=== PATIENT | female | born 1990 | race American Indian/Alaskan Native ===

== ENCOUNTER 2021-02-04 14:47 | Emergency (ER) | payer SELFPAY ==
[2021-02-04] MEDS ORDERED: LORazepam 2 MG/ML VIAL IM PRN (14:58)
[2021-02-04] MEDS ORDERED: HALOPERIDOL LACTATE 5 MG/1 ML INJ IM PRN (14:58)
[2021-02-04] MEDS ORDERED: diphenhydrAMINE 25 MG CAP PO PRN (14:58)
--- NOTE | 2021-02-04 14:59 | Event Note ---
Date: 02/04/21 The patient was evaluated in the emergency department for symptoms described in the history of present illness. He/she was evaluated in the context of the global COVID-19 pandemic, which necessitated consideration that the patient might be at risk for infection with the virus that causes COVID-19. Institutional protocols and algorithms that pertain to the evaluation of patients at risk for COVID-19 are in a state of rapid change based on information released by regulatory bodies including the CDC and federal and state organizations. These policies and algorithms were followed during the patient's care in the emergency department. Please note that these policies, procedures and recommendations changed on a rapid basis. Medical screening examination note: Charge nurse has asked me to expediently evaluate this patient for acute psychosis. The patient is reportedly brought to the hospital by her for psychotic behavior. As per collateral information from nursing staff, patient refusing vital signs, refusing evaluation, and is reading from a Bible in a hyperverbal, disorganized manner. On my evaluation, the patient is awake, but agitated, uncooperative, and presents acutely psychotic. The patient does not exhibit decision-making capacity. The patient meets criteria for 1013. 1013 ordered and executed by myself. Laboratory studies have been ordered. Psychiatric consultation has been requested. As needed medications have been ordered.
[2021-02-04 15:43] LABS: Basophils # (Auto) 0.1 K/mm3 (0.0-0.1); Basophils % (Auto) 0.6 % (0.0-1.8); Eosinophils # (Auto) 0.1 K/mm3 (0.0-0.4); Eosinophils % (Auto) 0.7 % (0.0-4.3); Hematocrit 42.3 % (30.3-42.9); Hemoglobin 13.7 gm/dl (10.1-14.3); Lymphocytes # (Auto) 2.6 K/mm3 (1.2-5.4); Lymphocytes % (Auto) 19.7 % (13.4-35.0); Mean Corpuscular HGB Conc 33 % (30-34); Mean Corpuscular Volume 94 fl (79-97); Monocytes % (Auto) 7.4 % (0.0-7.3); Platelet Count 351 K/mm3 (140-440); Red Cell Distribution Width 14.1 % (13.2-15.2)
[2021-02-04 16:04] LABS: BUN/Creatinine Ratio 11; Blood Urea Nitrogen 10 mg/dL (7-17); Calcium 9.6 mg/dL (8.4-10.2); Hemolysis Index 29
--- NOTE | 2021-02-04 16:08 | Emergency Department Report ---
HPI - General Chief Complaint: Psych Time Seen by Provider: 02/04/21 15:01 - HPI HPI: This is a 30-year-old female who presents to the emergency department, brought in by her , for a mental health evaluation. The patient has a history of bipolar disorder and is noncompliant with her medications. Over the past 2 days the has been noticing worsening erratic behavior. She was seen outside of the emergency department, in the lobby, fighting with her . She has been hyperverbal and clutching a Bible and exhibiting disorganized thoughts and speech. The patient was initially seen by my colleague who placed her on a 1013 and ordered for medication for treatment so her evaluation can continue. Patient has never been to this facility previously. ED Past Medical Hx - Medications Home Medications: Home Medications Medication Instructions Recorded Confirmed Last Taken Type hydrOXYzine PAMOATE [Vistaril] 25 mg PO BID PRN #60 capsule 02/05/21 Unknown Rx traZODone [Desyrel] 50 mg PO QHS #30 tab 02/05/21 Unknown Rx ED Review of Systems ROS: Stated complaint: PYSCH EVAL Other details as noted in HPI Comment: Unobtainable due to pts medical conditions Physical Exam - Physical Exam Physical Exam: GENERAL: The patient is well-developed well-nourished. HENT: Normocephalic. Atraumatic. Patient has moist mucous membranes. EYES: Extraocular motions are intact. NECK: Supple. Trachea is midline. CHEST/LUNGS: Clear to auscultation. There is no respiratory distress noted. HEART/CARDIOVASCULAR: Regular. There is no tachycardia. There is no murmur. ABDOMEN: Abdomen is soft, nontender. Patient has normal bowel sounds. SKIN: Skin is warm and dry. NEURO: The patient is awake, alert, but is not cooperative. No slurred speech. MUSCULOSKELETAL: There is no tenderness or deformity. There is no limitation range of motion. PSYCH: Patient expresses rambling tangential thoughts. ED Medical Decision Making - Lab Data Result diagrams: 02/04/21 15:14 02/04/21 15:14 Lab Results 02/04/21 02/04/21 02/04/21 Range/Units 15:14 15:14 15:14 WBC 13.0 H (4.5-11.0) K/mm3 RBC 4.50 (3.65-5.03) M/mm3 Hgb 13.7 (10.1-14.3) gm/dl Hct 42.3 (30.3-42.9) % MCV 94 (79-97) fl MCH 31 (28-32) pg MCHC 33 (30-34) % RDW 14.1 (13.2-15.2) % Plt Count 351 (140-440) K/mm3 Lymph % (Auto) 19.7 (13.4-35.0) % Armstrong % (Auto) 7.4 H (0.0-7.3) % Eos % (Auto) 0.7 (0.0-4.3) % Baso % (Auto) 0.6 (0.0-1.8) % Lymph # (Auto) 2.6 (1.2-5.4) K/mm3 Armstrong # (Auto) 1.0 H (0.0-0.8) K/mm3 Eos # (Auto) 0.1 (0.0-0.4) K/mm3 Baso # (Auto) 0.1 (0.0-0.1) K/mm3 Seg Neutrophils % 71.6 H (40.0-70.0) % Seg Neutrophils # 9.3 H (1.8-7.7) K/mm3 Sodium 137 (137-145) mmol/L Potassium 3.6 (3.6-5.0) mmol/L Chloride 102.8 (98-107) mmol/L Carbon Dioxide 18 L (22-30) mmol/L Anion Gap 20 mmol/L BUN 10 (7-17) mg/dL Creatinine 0.9 (0.6-1.2) mg/dL Estimated GFR > 60 ml/min BUN/Creatinine Ratio 11 % Glucose 122 H (65-100) mg/dL Calcium 9.6 (8.4-10.2) mg/dL HCG, Qual (Negative) Salicylates (2.8-20.0) mg/dL Acetaminophen (10.0-30.0) ug/mL Plasma/Serum Alcohol < 0.01 (0-0.07) % 02/04/21 02/04/21 02/04/21 Range/Units 15:14 15:14 15:14 WBC (4.5-11.0) K/mm3 RBC (3.65-5.03) M/mm3 Hgb (10.1-14.3) gm/dl Hct (30.3-42.9) % MCV (79-97) fl MCH (28-32) pg MCHC (30-34) % RDW (13.2-15.2) % Plt Count (140-440) K/mm3 Lymph % (Auto) (13.4-35.0) % Armstrong % (Auto) (0.0-7.3) % Eos % (Auto) (0.0-4.3) % Baso % (Auto) (0.0-1.8) % Lymph # (Auto) (1.2-5.4) K/mm3 Armstrong # (Auto) (0.0-0.8) K/mm3 Eos # (Auto) (0.0-0.4) K/mm3 Baso # (Auto) (0.0-0.1) K/mm3 Seg Neutrophils % (40.0-70.0) % Seg Neutrophils # (1.8-7.7) K/mm3 Sodium (137-145) mmol/L Potassium (3.6-5.0) mmol/L Chloride (98-107) mmol/L Carbon Dioxide (22-30) mmol/L Anion Gap mmol/L BUN (7-17) mg/dL Creatinine (0.6-1.2) mg/dL Estimated GFR ml/min BUN/Creatinine Ratio % Glucose (65-100) mg/dL Calcium (8.4-10.2) mg/dL HCG, Qual Negative (Negative) Salicylates < 0.3 L (2.8-20.0) mg/dL Acetaminophen 5.0 L (10.0-30.0) ug/mL Plasma/Serum Alcohol (0-0.07) % - Medical Decision Making This patient presents to the emergency department for mental health evaluation. She has rambling tangential thoughts and appears disorganized. She has been agitated and even violent towards her . Initially patient was seen by my colleague and placed on a 1013. She received some medications for treatment of her psychosis that we could do our medical clearance and evaluation. Labs have been mostly unremarkable thus far including CBC, metabolic panel, blood alcohol level, negative salicylate and acetaminophen levels, and the patient is not . We are still waiting for urine for urinalysis and UDS. Vital signs have been reassuring thus far including being afebrile. The patient has not yet been seen by the psychiatric team but they will see the patient and assist with disposition. If the decision is made that the patient requires inpatient stabilization, I would consider this patient medically cleared for psychiatric placement. Critical Care Time: No Critical care attestation.: If time is entered above; I have spent that time in minutes in the direct care of this critically ill patient, excluding procedure time. ED Disposition Clinical Impression: Acute psychosis, Bipolar disorder, Anxiety Disposition: HOME / SELF CARE / HOMELESS Is pt being admited?: No Condition: Stable Instructions: Managing Bipolar Disorder, Managing Anxiety, Adult Additional Instructions: Professional and Agency Contacts To help Res[facility] Crises(04/11) [place] Crisis Line: Suicide Prevention Line: Crisis Text Line: Text START to 610224 Emergency: 911 Outpatient COMMUNITY Behavioral Health Resources: [facility]: [facility] [address] [place], [place] [address] [address] [facility] [address] [place] [address] Friday thru Friday - 8am - 5pm [facility] Address: [address] [place] [address] [facility]: [facility] Address: [address] [place] [address] Friday thru Friday- 7am-2pm [facility] Address: [address] [place] [address] Friday thrfriday: 8:30AM-5PM Prescriptions: traZODone [Desyrel] 50 mg PO QHS #30 tab hydrOXYzine PAMOATE [Vistaril] 25 mg PO BID PRN #60 capsule PRN Reason: Anxiety Referrals: PRIMARY CARE, [Primary Care Provider] - 3-5 Days Time of Disposition: 19:41
[2021-02-05 08:23] LABS: Bacteria,Urine 2+ /HPF (Negative); Bilirubin,Urine NEG (Negative); Blood,Urine MOD (Negative); Color,Urine Yellow (Yellow); Hyaline Casts,Urine 2 /LPF; Mucus,Urine 3+ /HPF; Renal Epithelial Cells,Urine 1 /LPF
[2021-02-05 08:25] LABS: Amphetamine Screen,Urine Negative; Benzodiazepines Screen,Urine Negative; Cannabinoid Screen,Urine Negative; Cocaine Screen,Urine Negative; Methadone Screen,Urine Negative; Opiate Screen,Urine Negative
--- NOTE | 2021-02-05 12:26 | Consultation ---
History of Present Illness - Reason for Consult Consult date: 02/05/21 Reason for consult: depression - History of Present Psychiatric Illness Rosanna Ortiz is a 30y/o female who was brought to the hospital for erratic behavior, crying and a lack of sleep. A mainframe analyst was utilized. The patient looks familiar to me. I asked her had she been here before and she says she's been here two other times. The patient says she had two family member who drowned the other day. She says it was a lot for her. She says she couldn't stopped crying, couldn't sleep and became depressed. She denies SI/HI. She says "no, no. I'm grateful to be alive." She denies hallucinations of any kind. She says "I just couldn't sleep and hearing that news was a lot." The patient says she has a history of Bipolar but does not take any medications. She says she stopped taking them because they were making her feel worse. I spoke to her about the importance of being on her medications and on-going therapy. She says "I was fine all this time until this happened." She says "I actually feel better after sleeping." I spoke to the patient's spouse. He confirmed that she lost her brother and a niece by drowning. He says the patient has been here two other times. I asked if her admissions could be under another name, he said it should be under [facility]. He says the patient was doing well until the tragedy with her family. He also states she wasn't sleeping and been very anxious. He denies observing any self harm or threats. I advised him that I would give the patient something for sleep and anxiety. He is comfortable with the patient going home and following up with outpatient psychiatry. PAST PSYCHIATRIC HISTORY: Diagnoses: Bipolar Suicide attempts or Self-harm behavior: Denies Prior psychiatric hospitalizations: Denies Substance Abuse history: Denies Previous psychiatric medications tried: could not recall Outpatient treatment: Denies PAST MEDICAL HISTORY: None reported or document Family Psychiatric History: None reported or documented SOCIAL HISTORY Marital Status: Living Arrangements: with spouse Employment Status: unemployed Access to guns/weapons: Denies Education: History of Abuse: Denies Legal History: Denies REVIEW OF SYSTEMS Constitutional: Negative for weight loss ENT: Negative for stridor Respiratory: Negative for cough or hemoptysis All other systems reviewed and are negative MENTAL STATUS EXAMINATION General Appearance and Behavior: Age appropriate, good hygiene, wearing appropriate clothes, calm and cooperative Cooperation: cooperative Psychomotor Behavior: Psychomotor normal Mood: anxious Affect and affective range: congruent with stated mood Thought Process: goal directed Thought Content: None Speech: Normal volume, Regular rate and rhythm, Suicidal Ideation: Denies Homicidal Ideation: Denies Hallucinations: Denies Delusions: None elicited Impulse Control: Unimpaired Insight and Judgment: Limied Memory: limited Attention: Distractible Orientation: alert and oriented Assessment and Plan (1) Hx of Bipolar (2) Generalized Anxiety Disorder Treatment Plan d/c 1013 Trazodone 50mg po qhs Vistaril 25mg po BID prn anxiety Sitter: per primary Medical: per primary Disposition: Do not recommend acute psychiatric inpatient treatment Will sign off. Thanks Case staffed with Dr. Woodall Medications and Allergies Allergies Allergy/AdvReac Type Severity Reaction Status Date / Time No Known Allergies Allergy Unverified 02/04/21 14:53 Active Meds: Active Medications Diphenhydramine HCl (Diphenhydramine 25 Mg Cap) 50 mg PO QHS PRN PRN Reason: Insomnia Haloperidol Lactate (Haloperidol Lactate 5 Mg/1 Ml Inj) 5 mg IM Q6HR PRN PRN Reason: Agitation Last Admin: 02/04/21 15:10 Dose: 5 mg Documented by: Lorazepam (Lorazepam 2 Mg/Ml Vial) 2 mg IM Q4HR PRN PRN Reason: Agitation Last Admin: 02/04/21 15:09 Dose: 2 mg Documented by: Mental Status Exam - Vital signs Last Vital Signs Temp 98.2 F 02/04/21 20:05 Pulse 111 H 02/04/21 20:05 Resp 18 02/04/21 20:05 BP 107/67 02/04/21 20:05 Pulse Ox 100 02/05/21 09:46 Results Result Diagrams: 02/04/21 15:14 02/04/21 15:14 Abnormal lab results 02/04/21 02/04/21 02/04/21 Range/Units 15:14 15:14 15:14 WBC 13.0 H (4.5-11.0) K/mm3 Price % (Auto) 7.4 H (0.0-7.3) % Price # (Auto) 1.0 H (0.0-0.8) K/mm3 Seg Neutrophils % 71.6 H (40.0-70.0) % Seg Neutrophils # 9.3 H (1.8-7.7) K/mm3 Carbon Dioxide 18 L (22-30) mmol/L Glucose 122 H (65-100) mg/dL Urine WBC (Auto) (0.0-6.0) /HPF Salicylates < 0.3 L (2.8-20.0) mg/dL Acetaminophen (10.0-30.0) ug/mL 02/04/21 02/05/21 Range/Units 15:14 Unknown WBC (4.5-11.0) K/mm3 Price % (Auto) (0.0-7.3) % Price # (Auto) (0.0-0.8) K/mm3 Seg Neutrophils % (40.0-70.0) % Seg Neutrophils # (1.8-7.7) K/mm3 Carbon Dioxide (22-30) mmol/L Glucose (65-100) mg/dL Urine WBC (Auto) 17.0 H (0.0-6.0) /HPF Salicylates (2.8-20.0) mg/dL Acetaminophen 5.0 L (10.0-30.0) ug/mL All other labs normal.
[2021-02-05 12:34] VITALS: BP 110/68
--- NOTE | 2021-02-05 12:37 | Event Note ---
Date: 02/05/21 S: Patient has no complaints. States she is depressed over recent loss of her brothers who drowned. O: No overnight events. Patient is calm and cooperative. Vital signs stable. A: Bipolar disorder, anxiety P: DC 1013. Patient has been seen, evaluated, and cleared by psychiatry team. Patient will be discharged with outpatient resources for follow-up.
== END 2021-02-05 15:06 | disposition home or self-care (01) ==
LOC: ED 14:47
DX: F23 Brief psychotic disorder (principal); F31.9 Bipolar disorder, unspecified; F41.9 Anxiety disorder, unspecified; Z20.822 Contact with and (suspected) exposure to COVID-19
CPT/HCPCS: 36415; 80048; 80307; 81001; 84703; 85025; 87086; 96372; 99284; J1630; J2060; U0003; 80320; G0480